=== PATIENT | male | born 1970 | race Caucasian/White ===

== ENCOUNTER 2018-09-20 16:56 | Emergency (ER) | payer OTHER ==
[~2018-09-20] VITALS: Ht 170.2 cm; Wt 75.0 kg
[2018-09-20 17:03] VITALS: Ht 170.2 cm; Wt 75.0 kg
[2018-09-20] MEDS ORDERED: LIDOCAINE 1% (MDV) 20 ML INJ SC ONE (17:30)
--- NOTE | 2018-09-20 17:53 | ERD ---
ER Documentation Chief Complaint Chief Complaint CYST TO BE DRAINED UNDER LEFT ARM HPI 47-year-old male presents in custody, presents with left-sided axilla cyst, presented for complaint of possible drainage. He states he has had a similar episode in the past, though not in this area. He denies fever, he has not had chest pain or shortness of breath. He has noted a small amount of drainage from the area. ROS All systems reviewed and are negative except as per history of present illness. PMhx/Soc History of Surgery: No Anesthesia Reaction: No Hx Neurological Disorder: Yes (CHRONIC BACK PAIN) Hx Respiratory Disorders: No Hx Cardiac Disorders: Yes (HTN) Hx Psychiatric Problems: No Hx Miscellaneous Medical Probl: No Hx Alcohol Use: No Hx Substance Use: Yes (METH) Hx Tobacco Use: Yes Smoking Status: Current every day smoker Physical Exam Vitals Vital Signs Date Temp Pulse Resp B/P (MAP) Pulse Ox O2 O2 Flow FiO2 Time Delivery Rate 09/20/18 97.9 87 16 145/87 99 17:03 (106) Physical Exam Const: [Well-developed, well-nourished nontoxic Head: Atraumatic Eyes: Normal conjunctiva ENT: Normal external ears, nose and mouth. Neck: Resp: Normal respiratory effort Cardio: Abd: Skin: Back: Ext: On the left axilla, there is a palpable erythematous cyst, approximately 2 x 2 cm, there is small amount of purulent drainage noted, distally pulses are intact, and sensation is intact light touch Neur: Awake and alert Psych: Normal mood and affect Results 24 hrs Current Medications Medications Dose Sig/Rahel Start Time Status Last (Trade) Ordered Route PRN Stop Time Admin Dose Reason Admin Lidocaine 20 ml ONCE ONCE 09/20/18 DC (Xylocaine SC 17:30 09/20/18 1% (Mdv) 20 17:31 ml) Procedures/MDM 47-year-old male presents for evaluation of axilla cyst. Concern for superimposed infection, cyst was incised and drained without complication, recommend a prescription for Keflex at discharge patient was in no distress. Departure Diagnosis: Primary Impression: Abscess Condition: Stable NORBERT CARMONA MD Sep 20, 2018 17:52
[2018-09-20] MEDS ORDERED: CEPH-443 PO (17:55)
[2018-09-20 18:04] VITALS: BP 137/86; PULSE 80; RESP 18
== END 2018-09-20 18:06 | disposition home or self-care (01) ==
LOC: E/R 16:56
DX: L02.412 Cutaneous abscess of left axilla (principal); I10 Essential (primary) hypertension; F17.210 Nicotine dependence, cigarettes, uncomplicated